=== PATIENT | male | born 1975 | race Caucasian/White ===

== ENCOUNTER 2017-01-20 14:56 | Inpatient (IN) | payer OTHER ==
[~2017-01-20] VITALS: Ht 180.3 cm; Wt 105.0 kg
[2017-01-20 15:03] VITALS: BP 131/74; PULSE 95; RESP 18; TEMP 98.8; O2SAT 97
[2017-01-20] MEDS ORDERED: ENOX100P SQ (15:08)
--- NOTE | 2017-01-20 15:14 | PD ---
HPI Chief Complaint: Pain: Acute or Chronic Time Seen by Provider: 15:04 Travel History International Travel<30 days: No Contact w/Intl Traveler<30days: No Traveled to known affect area: No History of Present Illness HPI Patient is a 41-year-old male who presents emergency department with complaint of DVT and PE. Patient had outpatient arthroscopic surgery of his right knee 8 days ago. Post procedure and states that he was having increasing swelling in the right leg. He has a history of DVT and was having pressure and a tingling feeling and states that this felt similar. He was seen at the [place] on Monday and had ultrasound that was negative. He was seen again today with a duplex ultrasound of the right lower extremity that per report shows "sonographic examination of the right lower extremity deep venous system from the distal common femoral vein to the level of the posterior tibial vein demonstrates lack of adequate compression and flow in the right posterior tibial vein. Also superficial thrombus phlebitis in the lesser saphenous vein. The rest the right lower extremity veins appear patent and compressible." Patient had also been complaining of some shortness of breath, but no chest pain. And therefore CT pulmonary angiogram was obtained today showing "multiple filling defects within segmental and subsegmental pulmonary arteries directed to the right upper lobe, right lower lobe, left lower lobe suggestive of PE. No evidence of deviation of the intraventricular septum". Patient was given a dose of 100 mg of Lovenox and transported here for further evaluation. 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 His previous DVT was felt to be likely due to immobilization and he never had a hyper coag workup to his knowledge. [facility] Past Medical History Deep Vein Thrombosis: Yes Past Surgical History Other Surgery: Yes Social History Alcohol Use: No Tobacco Use: No Allergies-Medications (Allergen,Severity, Reaction): Coded Allergies: Penicillin (Verified Allergy, Severe, 01/20/17) Reported Meds & Prescriptions Reported Meds & Active Scripts Active Reported Lovenox Inj (Enoxaparin Sodium) 100 Mg/Ml Syr 100 Mg SQ DAILY Review of Systems Except as stated in HPI: all other systems reviewed are Neg Physical Exam Narrative GENERAL: Well appearing male in no acute distress SKIN: Warm and dry. HEAD: Normocephalic. EYES: No scleral icterus. No injection or drainage. ENT: Mucous membranes pink and moist. NECK: Supple CARDIOVASCULAR: Regular rate and rhythm. No murmur appreciated. RESPIRATORY: No accessory muscle use. Clear to auscultation. Breath sounds equal bilaterally. GASTROINTESTINAL: Abdomen soft, non-tender, nondistended. MUSCULOSKELETAL: No obvious deformities. Right lower extremity with swelling to the thigh, no ecchymosis. Knee incisions are clean dry and intact. No palpable cords. Good distal sensation and pulses. NEUROLOGICAL: Awake and alert. Motor grossly within normal limits. Normal speech. PSYCHIATRIC: Appropriate mood and affect; insight and judgment normal. Data Data Last Documented VS Vital Signs Date Time Temp Pulse Resp B/P Pulse Ox O2 Delivery O2 Flow Rate FiO2 01/20/17 15:03 98.8 95 18 131/74 97 MDM Medical Decision Making Medical Screen Exam Complete: Yes Emergency Medical Condition: Yes Medical Record Reviewed: Yes Differential Diagnosis 41-year-old male here with complaint of right lower extremity swelling, shortness of breath 8 days post arthroscopic surgery further right knee. Differential includes DVT, PE, cellulitis, atelectasis. Narrative Course Patient has outpatient radiology studies with positive DVT to the groin and multiple segmental and subsegmental PE. He has already been given 100 mg Lovenox approximately 1 hour prior to arrival. Patient is stable and does not warrant heparin drip. CBC, BMP, coags, type and screen were ordered. Patient has already been anticoagulated and does not warrant further anticoagulation at this time. Patient will be admitted for further management of PE, DVT and hypercoagulable workup. Critical Care Narrative Aggregate critical care time was 35 minutes. Time to perform other separately billable procedures was not included in the critical care time. My time did not include minutes spent treating any other patients simultaneously or on activities that did not directly contribute to the patient's treatment. The services I provided to this patient were to treat and/or prevent clinically significant deterioration that could result in: Cardiopulmonary decompensation, , disability I provided critical care services requiring my management, as noted below: Chart data review, documentation time, medication orders and management, vital sign assessments/reviewing monitor data, ordering and reviewing lab tests, ordering and interpreting/reviewing x-rays and diagnostic studies, care of the patient and discussion of the patient with the admitting physicians. Diagnosis Primary Impression: Pulmonary embolism Qualified Code: I26.99 - Other acute pulmonary embolism without acute cor pulmonale Additional Impression: DVT (deep venous thrombosis) Qualified Code: I82.411 - Acute deep vein thrombosis (DVT) of femoral vein of right lower extremity Admitting Information Admitting Physician Requests: Admit Shagufta Martinez MD Jan 20, 2017 15:14
[2017-01-20] MEDS ORDERED: SODIUM CHLORIDE 0.9% FLUSH 5 ML FLUSH IVF PRN (15:15)
[2017-01-20 15:21] VITALS: O2SAT 97
[2017-01-20 15:32] LABS: AUTOMATED NEUTROPHIL # 7.9 TH/MM3 (1.8-7.7); BASOPHIL # 0.1 TH/MM3 (0-0.2); BASOPHIL % 0.7 % (0.0-2.0); EOSINOPHIL # 0.2 TH/MM3 (0-0.4); EOSINOPHIL % 1.7 % (0.0-4.0); HEMATOCRIT 43.5 % (39.0-51.0); HEMO FLAGS DIFF FINAL; LYMPH % 22.2 % (9.0-44.0); LYMPHOCYTE # 2.7 TH/MM3 (1.0-4.8); MEAN CELL VOLUME 82.6 FL (80.0-100.0); MEAN CORPUSCULAR HEMOGLOBIN 28.2 PG (27.0-34.0); MEAN CORPUSCULAR HGB CONC 34.1 % (32.0-36.0); MONO % 9.3 % (0.0-8.0); NEUT % 66.1 % (16.0-70.0); PLATELET COUNT 296 TH/MM3 (150-450); RED BLOOD COUNT 5.27 MIL/MM3 (4.50-5.90); RED CELL DISTRIBUTION WIDTH 13.2 % (11.6-17.2)
[2017-01-20 15:54] LABS: BICARBONATE 23.9 MEQ/L (21.0-32.0)
[2017-01-20 15:55] LABS: APTT (PATIENT) 27.3 SEC (24.3-30.1); PROTHROMBIN TIME - PATIENT 10.5 SEC (9.8-11.6)
[2017-01-20 17:14] VITALS: BP 131/74; PULSE 91; RESP 18; O2SAT 97
[2017-01-20] MEDS ORDERED: SODIUM CHLORIDE 0.9% FLUSH 5 ML FLUSH FLUSH PRN (17:30)
[2017-01-20] MEDS ORDERED: NALOXONE HCL 0.4 MG/ML AMP IV PRN (17:30)
[2017-01-20] MEDS ORDERED: ONDANSETRON HCL 4 MG/2 ML VIAL IVP PRN (18:00)
[2017-01-20] MEDS ORDERED: MAGNESIUM HYDROXIDE SUSP 30 ML CUP PO PRN (18:00)
[2017-01-20] MEDS ORDERED: ACETAMINOPHEN 325 MG TAB PO PRN (18:00)
--- NOTE | 2017-01-20 18:44 | HHI.HP ---
[facility] Admission Diagnosis PE, DVT Diagnoses: Chief Complaint: PE, DVT, tachycardia, SOB Travel History International Travel<30 Days: No Contact w/Intl Traveler <30 Da: No Traveled to Known Affected Are: No History of Present Illness Patient is a 41-year-old male with primary medical history of previous DVT who came into the hospital after being seen at the outpatient clinic in [place] secondary to results of his right leg Doppler ultrasound. Patient had an outpatient arthroscopic surgery of his right knee approximately a week ago. Postprocedure patient was able to walk without difficulty does not need any DME. Monday, patient started to notice right lower extremity swelling, he had difficulty getting up and putting weight on his right leg. He went to the clinic the following day and a Doppler ultrasound that they did in [place] showed negative for DVT. He was seen again today at the [place] and duplex ultrasound of the right lower extremity showed sonographic examination of the right lower extremity deep venous system from the distal common femoral vein to the level of the posterior tibial vein demonstrates lack of adequate compression and flow in the right posterior tibial vein. Also superficial thrombus phlebitis in the lesser saphenous vein. The rest the right lower extremity veins appear patent and compressible. Patient also stated that he has been having shortness of breath without any chest pain exacerbated with exertion especially when standing up and doing some activities, started Monday. CT pulmonary angiogram was done and showed multiple filling defects within segmental and subsegmental pulmonary arteries directed to the right upper lobe, right lower lobe, left lower lobe suggestive of PE. No evidence of deviation of the intraventricular septum. Patient was given a dose of 100 mg of Lovenox around 2:30 PM. He was also handed the prescription for both Lovenox and Coumadin by the [place]. In the ED, patient is tachycardic. Reports shortness of breath is improving just laying down and not exerting any effort. Denies chest pain, palpitations, headaches, dizziness. Denies fevers, chills, n/v/d. EKG showed sinus tachycardia Labs reviewed. WBC slightly elevated 12.0, otherwise remarkable. BMP unremarkable except for low EGFR 63, calcium 8.4 Review of Systems Except as stated in HPI: all other systems reviewed are Neg Past Family Social History Past Medical History DVT in 2015 patient was treated with Coumadin for 6 months Past Surgical History Stomach surgery during infancy Status post right knee arthroscopic surgery for torn meniscus Reported Medications None Allergies: Coded Allergies: Penicillin (Verified Allergy, Severe, 01/20/17) Active Ordered Medications Current Medications Medications (Trade) Dose Ordered Sig/Jurgen Route Start Time Stop Time Status Last Admin (NS Flush) 2 ml UNSCH PRN FLUSH 01/20/17 17:30 (NS Flush) 2 ml BID FLUSH 01/20/17 21:00 (Tylenol) 650 mg Q4H PRN PO 01/20/17 18:00 (Zofran Inj) 4 mg Q6H PRN IVP 01/20/17 18:00 (Milk Of Magnesia Liq) 30 ml Q12H PRN PO 01/20/17 18:00 (Narcan Inj) 0.4 mg UNSCH PRN IV 01/20/17 17:30 Family History No family history of DVT Social History Patient is a who lives with and children. Denies alcohol use Tobacco use 20 years ago, only on occasion Denies illicit drug use Physical Exam Vital Signs Vital Signs Date Time Temp Pulse Resp B/P Pulse Ox O2 Delivery O2 Flow Rate FiO2 01/20/17 17:14 91 18 131/74 97 Nasal Cannula 2 01/20/17 15:22 68 18 01/20/17 15:21 97 Nasal Cannula 2 01/20/17 15:03 98.8 95 18 131/74 97 Physical Exam GENERAL: This is a well-nourished, well-developed patient, in no apparent distress. SKIN: No rashes, ecchymoses or lesions. Warm and dry HEAD: Atraumatic. Normocephalic. No temporal or scalp tenderness. EYES: Pupils equal round and reactive. Extraocular motions intact. No scleral icterus. No injection or drainage. ENT: Nose without bleeding. Throat without erythema. Uvula midline. Airway patent. NECK: Trachea midline. No JVD or lymphadenopathy. Supple, nontender, no meningeal signs. CARDIOVASCULAR: Regular rate and rhythm without murmurs, gallops, or rubs. RESPIRATORY: No wheezes, rales, or rhonchi. Moderate aeration. GASTROINTESTINAL: Abdomen soft, non-tender, nondistended. Bowel sounds active 4. MUSCULOSKELETAL: Extremities without clubbing, cyanosis, RLE +2 edema, tender to palpate. NEUROLOGICAL: Awake and alert. Motor and sensory grossly within normal limits. Normal speech. Laboratory Laboratory Tests Test 01/20/17 15:14 White Blood Count 12.0 Red Blood Count 5.27 Hemoglobin 14.9 Hematocrit 43.5 Mean Corpuscular Volume 82.6 Mean Corpuscular Hemoglobin 28.2 Mean Corpuscular Hemoglobin 34.1 Concent Red Cell Distribution Width 13.2 Platelet Count 296 Mean Platelet Volume 8.3 Neutrophils (%) (Auto) 66.1 Lymphocytes (%) (Auto) 22.2 Monocytes (%) (Auto) 9.3 Eosinophils (%) (Auto) 1.7 Basophils (%) (Auto) 0.7 Neutrophils # (Auto) 7.9 Lymphocytes # (Auto) 2.7 Monocytes # (Auto) 1.1 Eosinophils # (Auto) 0.2 Basophils # (Auto) 0.1 CBC Comment DIFF FINAL Differential Comment Prothrombin Time 10.5 Prothromb Time International 1.0 Ratio Activated Partial 27.3 Thromboplast Time Sodium Level 141 Potassium Level 4.0 Chloride Level 107 Carbon Dioxide Level 23.9 Anion Gap 10 Blood Urea Nitrogen 15 Creatinine 1.28 Estimat Glomerular Filtration 63 Rate Random Glucose 83 Calcium Level 8.4 Blood Type O POSITIVE Antibody Screen NEGATIVE Result Diagram: 01/20/17 1514 01/20/17 1514 Assessment and Plan Problem List: (1) DVT (deep venous thrombosis) ICD Code: I82.409 Status: Acute (2) Pulmonary embolism ICD Code: I26.99 Status: Acute Assessment and Plan Patient is a 41-year-old male with primary medical history of previous DVT who came into the hospital after being seen at the outpatient clinic in [place] secondary to results of his right leg Doppler ultrasound. Patient had an outpatient arthroscopic surgery of his right knee approximately a week ago. Postprocedure patient was able to walk without difficulty does not need any DME. Monday, patient started to notice right lower extremity swelling, he had difficulty getting up and putting weight on his right leg. He went to the clinic the following day and a Doppler ultrasound that they did in [place] showed negative for DVT. He was seen again today at the [place] and duplex ultrasound of the right lower extremity showed lack of flow. Patient also stated that he has been having shortness of breath without any chest pain exacerbated with exertion especially when standing up and doing some activities, started Monday. CT angiogram showed PE. Newly diagnosed PE New DVT, with prior DVT history - Doppler ultrasound showed sonographic examination of the right lower extremity deep venous system from the distal common femoral vein to the level of the posterior tibial vein demonstrates lack of adequate compression and flow in the right posterior tibial vein. Also superficial thrombus phlebitis in the lesser saphenous vein. The rest the right lower extremity veins appear patent and compressible. - CT pulmonary angiogram was done and showed multiple filling defects within segmental and subsegmental pulmonary arteries directed to the right upper lobe, right lower lobe, left lower lobe suggestive of PE. No evidence of deviation of the intraventricular septum. - Patient was given a dose of 100 mg of Lovenox around 2:30 PM. He [facility] also [facility] - Continue Lovenox with 1.5 mg/kg/day dosing. 150mg/daily , bridge to Coumadin - Hematology consult and input appreciated. Seen by Dr. Ramírez. Recommends to do hypercoagulable studies about 2-3 months outpatient. - O2 nasal cannula as needed for SOB. Monitor respiratory status - Telemetry. - Follow up labs tomorrow - Lovenox injection teaching in anticipation for discharge. Written by Nissa Anderson, acting as scribe for Dr. Johnson on 01/20/17 at 18:22. All or portions of this note were transcribed by MARGRET Quiroz. I, Dr. Rocael Johnson personally performed the history, physical exam, and medical decision making; and confirmed the accuracy of the information in the transcribed note. Authenticated by Dr. Rocael Johnson on 01/20/17 at 19:35. Code Status Full code Discussed Condition With Patient, , Dr. Ramírez, ED attending Physician Certification 2 Midnight Certification Type: Admission for Inpatient Services Order for Inpatient Services The services are ordered in accordance with Medicare regulations or non- Medicare payer requirements, as applicable. In the case of services not specified as inpatient-only, they are appropriately provided as inpatient services in accordance with the 2-midnight benchmark. Estimated LOS (days): 2 days is the estimated time the patient will need to remain in the hospital, assuming treatment plan goals are met and no additional complications. Post-Hospital Plan: Home Problem Qualifiers (1) DVT (deep venous thrombosis): Qualified Code: I82.411 - Acute deep vein thrombosis (DVT) of femoral vein of right lower extremity (2) Pulmonary embolism: Qualified Code: I26.99 - Other acute pulmonary embolism without acute cor pulmonale Nissa Herron Jan 20, 2017 18:43 Rocael Johnson MD Jan 20, 2017 19:38
[2017-01-20] MEDS ORDERED: WARFARIN SOD 5 MG TAB PO ONE (19:00)
[2017-01-20 20:00] VITALS: BP 128/80; PULSE 95; RESP 20; TEMP 99.6; O2SAT 98
[2017-01-20] MEDS ORDERED: SODIUM CHLORIDE 0.9% FLUSH 5 ML FLUSH FLUSH SCH (21:00)
--- NOTE | 2017-01-20 22:23 | MB ---
cc: KRISTIN MICHEL MD DATE OF CONSULTATION 01/20/17 REASON FOR CONSULTATION Consult requested by Dr. Johnson for evaluation of a right lower extremity DVT with pulmonary embolism. HISTORY OF PRESENT ILLNESS This is a 41-year-old male. He has a history of right lower extremity DVT in 2015. 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 He was treated with six months of Coumadin through the [place]. The patient recently had a right knee arthroscopic surgery. This was about 7-10 days ago. The patient stated that after the surgery he was ambulating well. He did not have any problems. However, he started noticing swelling of the lower leg. He went to see his primary physician, Dr. Francois, at the [place]. A doppler ultrasound of his of the leg was done which showed DVT. Dr. Francois started him on Lovenox and gave him Coumadin. He also had a CT angiogram of the chest which showed pulmonary embolism. He was advised to come to the emergency room. In the emergency room, the patient has been evaluated by ER physician and admitted to Dr. Johnson. I have been asked to see the patient for further evaluation. The patient denies any shortness of breath, but he still has significant swelling and pain in the right lower extremity. He stated it was difficult to walk for him because of the swelling and pain. He had recent arthroscopic knee surgery which is not bothering him. REVIEW OF SYSTEMS The rest of the review of systems is negative. PAST MEDICAL HISTORY DVT of the right lower extremity in 2015 PAST SURGICAL HISTORY Recent right knee arthroscopic surgery. ALLERGIES PENICILLIN MEDICATIONS Prior to coming to the hospital none. FAMILY HISTORY No family history of thromboembolic disease. SOCIAL HISTORY The patient used to smoke cigarettes 20 years ago, does not drink alcohol. He is . PHYSICAL EXAMINATION GENERAL: A well-developed, well-nourished male in no apparent distress. VITAL SIGNS: Temperature 98.8, heart rate is 95, blood pressure 131/74. O2 saturation 97% cm on 2 liters nasal cannula. HEENT: PERRLA, EOMI, anicteric. No oral lesions are noted. NECK: Supple. There is no cervical, supraclavicular, axillary Lymphadenopathy noted. LUNGS: Clear. No wheezing, rhonchi or rales. HEART: Regular rate and rhythm. ABDOMEN: Soft, nontender. No hepatosplenomegaly. EXTREMITIES: Swelling in the right lower extremity noted. NEUROLOGIC: Awake, alert, oriented x3. SKIN: No significant lesions noted. ASSESSMENT 1. New onset Right lower extremity DVT with bilateral pulmonary embolism. 2. History of right lower extremity DVT in 2015. PLAN I have reviewed his available records and I have discussed with the patient and his regarding the DVT and pulmonary embolism. I have been asked to see the patient for hypercoagulable workup. I would not order any hypercoagulable panel at this time as it will not be reliable due to the acute event. Regardless, the management of the DVT and pulmonary embolism would not change whether we do the hypercoagulable now or later. Therefore, I have recommended that the hypercoagulable panel should be done in two to three months when the acute event resolves. We also discussed about the choice of the anticoagulation. According to the patient's , [facility] not [facility] or Eliquis. She stated that , when he had DVT of the right lower extremity two years ago he was prescribed Xarelto which the [facility] was unable to [facility] the prescription. I have advised her that she can check with the [facility] on Monday to see whether they will cover Eliquis or Xarelto as they may have change the policy. His primary physician has already given him Lovenox injections to do at home as well as Coumadin prescription. I think it is reasonable to start him on Coumadin tomorrow. I have discussed the case with Dr. Johnson. Thank you for asking my opinion. MD SHERINE Burgos/ /9:24 PM /10:00 PM CARLENE
[2017-01-20] MEDS ORDERED: ACETAMINOPHEN/HYDROcodone 325 MG/5 MG TAB PO PRN (23:00)
[2017-01-20] MEDS: ACETAMINOPHEN/HYDROcodone 325 MG/5 MG TAB PO PRN (23:01)
[2017-01-21] VITALS: BP 127/79; PULSE 97; RESP 20; TEMP 98.8; O2SAT 96
[2017-01-21 04:00] VITALS: BP 118/72; PULSE 83; RESP 20; TEMP 98; O2SAT 99
[2017-01-21 04:57] LABS: AUTOMATED NEUTROPHIL # 4.5 TH/MM3 (1.8-7.7); BASOPHIL # 0.1 TH/MM3 (0-0.2); BASOPHIL % 0.9 % (0.0-2.0); EOSINOPHIL # 0.3 TH/MM3 (0-0.4); HEMATOCRIT 43.2 % (39.0-51.0); HEMO FLAGS DIFF FINAL; LYMPH % 36.5 % (9.0-44.0); LYMPHOCYTE # 3.3 TH/MM3 (1.0-4.8); MEAN CELL VOLUME 82.8 FL (80.0-100.0); MEAN CORPUSCULAR HEMOGLOBIN 27.6 PG (27.0-34.0); MEAN CORPUSCULAR HGB CONC 33.3 % (32.0-36.0); MONO % 10.5 % (0.0-8.0); NEUT % 49.1 % (16.0-70.0); PLATELET COUNT 252 TH/MM3 (150-450); RED BLOOD COUNT 5.22 MIL/MM3 (4.50-5.90); RED CELL DISTRIBUTION WIDTH 13.3 % (11.6-17.2); WHITE BLOOD COUNT 9.1 TH/MM3 (4.0-11.0)
[2017-01-21 04:58] LABS: PROTHROMBIN TIME - PATIENT 10.5 SEC (9.8-11.6)
[2017-01-21 05:16] LABS: ANION GAP 7 MEQ/L (5-15); AST (GOT) 58 U/L (15-37); BICARBONATE 25.2 MEQ/L (21.0-32.0); BLOOD UREA NITROGEN 15 MG/DL (7-18); CHLORIDE 109 MEQ/L (98-107); GLOMERULAR FILTRATION RATE 70 ML/MIN (>89); POTASSIUM 3.9 MEQ/L (3.5-5.1); SODIUM (NA) 141 MEQ/L (136-145)
[2017-01-21 05:18] LABS: ALKALINE PHOSPHATASE 108 U/L (45-117); ALT (GPT) 117 U/L (12-78); TOTAL BILIRUBIN ADULT 0.5 MG/DL (0.2-1.0)
[2017-01-21 08:00] VITALS: BP 109/72; PULSE 79; RESP 17; TEMP 97.8; O2SAT 97
[2017-01-21] MEDS ORDERED: ENOXAPARIN SODIUM 100 MG/ML SYRINGE SQ SCH ×2 (09:00)
[2017-01-21] MEDS: ACETAMINOPHEN/HYDROcodone 325 MG/5 MG TAB PO PRN (09:37)
--- NOTE | 2017-01-21 10:35 | PD.ONC.PN ---
Subjective Subjective Remarks Afebrile overnight. Patient resting comfortably. He had some pain in RLE earlier, but it improved with pain medication. Objective Data Date Time Temp Pulse Resp B/P Pulse Ox O2 Delivery O2 Flow Rate FiO2 01/21/17 08:00 97.8 79 17 109/72 97 01/21/17 06:27 18 01/21/17 04:00 98.0 83 20 118/72 99 01/21/17 00:00 98.8 97 20 127/79 96 01/20/17 20:00 99.6 95 20 128/80 98 01/20/17 17:14 91 18 131/74 97 Nasal Cannula 2 01/20/17 15:22 68 18 01/20/17 15:21 97 Nasal Cannula 2 01/20/17 15:03 98.8 95 18 131/74 97 Result Diagram: 01/21/17 0418 01/21/17 0418 Laboratory Results Laboratory Tests Test 01/20/17 01/21/17 15:14 04:18 White Blood Count 12.0 TH/MM3 9.1 TH/MM3 Red Blood Count 5.27 MIL/MM3 5.22 MIL/MM3 Hemoglobin 14.9 GM/DL 14.4 GM/DL Hematocrit 43.5 % 43.2 % Mean Corpuscular Volume 82.6 FL 82.8 FL Mean Corpuscular Hemoglobin 28.2 PG 27.6 PG Mean Corpuscular Hemoglobin 34.1 % 33.3 % Concent Red Cell Distribution Width 13.2 % 13.3 % Platelet Count 296 TH/MM3 252 TH/MM3 Mean Platelet Volume 8.3 FL 8.4 FL Neutrophils (%) (Auto) 66.1 % 49.1 % Lymphocytes (%) (Auto) 22.2 % 36.5 % Monocytes (%) (Auto) 9.3 % 10.5 % Eosinophils (%) (Auto) 1.7 % 3.0 % Basophils (%) (Auto) 0.7 % 0.9 % Neutrophils # (Auto) 7.9 TH/MM3 4.5 TH/MM3 Lymphocytes # (Auto) 2.7 TH/MM3 3.3 TH/MM3 Monocytes # (Auto) 1.1 TH/MM3 1.0 TH/MM3 Eosinophils # (Auto) 0.2 TH/MM3 0.3 TH/MM3 Basophils # (Auto) 0.1 TH/MM3 0.1 TH/MM3 CBC Comment DIFF FINAL DIFF FINAL Differential Comment Prothrombin Time 10.5 SEC 10.5 SEC Prothromb Time International 1.0 RATIO 1.0 RATIO Ratio Activated Partial 27.3 SEC Thromboplast Time Sodium Level 141 MEQ/L 141 MEQ/L Potassium Level 4.0 MEQ/L 3.9 MEQ/L Chloride Level 107 MEQ/L 109 MEQ/L Carbon Dioxide Level 23.9 MEQ/L 25.2 MEQ/L Anion Gap 10 MEQ/L 7 MEQ/L Blood Urea Nitrogen 15 MG/DL 15 MG/DL Creatinine 1.28 MG/DL 1.16 MG/DL Estimat Glomerular Filtration 63 ML/MIN 70 ML/MIN Rate Random Glucose 83 MG/DL 95 MG/DL Calcium Level 8.4 MG/DL 8.3 MG/DL Blood Type O POSITIVE Antibody Screen NEGATIVE Total Bilirubin 0.5 MG/DL Aspartate Amino Transf 58 U/L (AST/SGOT) Alanine Aminotransferase 117 U/L (ALT/SGPT) Alkaline Phosphatase 108 U/L Total Protein 6.9 GM/DL Albumin 2.9 GM/DL Administered Medications Medications (Trade) Dose Ordered Sig/Jurgen Route PRN Reason Start Time Stop Time Status Last Admin Dose Admin IV Flush (NS Flush) 2 ml BID FLUSH 01/20/17 21:00 01/20/17 20:38 Enoxaparin Sodium (Lovenox Inj) 150 mg DAILY SQ 01/21/17 09:00 01/21/17 09:36 Acetaminophen/ Hydrocodone Bitart ([place] 5-325 Mg) 1 tab Q4H PRN PO PAIN 1-5 01/20/17 23:00 01/21/17 05:23 Acetaminophen/ Hydrocodone Bitart ([place] 5-325 Mg) 2 tab Q4H PRN PO PAIN 6-10 01/20/17 23:00 01/21/17 09:37 Objective Remarks GENERAL: Young man, sitting up in bed in [facility]. SKIN: Warm and dry. HEAD: Normocephalic. EYES: No injection or drainage. NECK: Supple, trachea midline. CARDIOVASCULAR: Regular rate and rhythm RESPIRATORY: Breath sounds equal bilaterally. No accessory muscle use. GASTROINTESTINAL: Abdomen soft, non-tender, nondistended. EXTREMITIES: No cyanosis. RLE with edema and tenderness to calf palpation. MUSCULOSKELETAL: Adequate muscle tone. NEUROLOGICAL: awake and alert, normal speech. Assessment/Plan Problem List: (1) Pulmonary embolism Status: Acute Plan: 01/21/17: continue Lovenox bridge to Coumadin. Patient will need to follow up with [facility] upon discharge --likely provoked by right knee arthroscopic surgery 7-10 days ago. Assessment 41y/o with RLE DVT + pulmonary embolism h/o DVT in 2014 Attending Statement pain is better continue lovenox and coumadin [facility] . available prn. Problem Qualifiers (1) Pulmonary embolism: Qualified Code: I26.99 - Other acute pulmonary embolism without acute cor pulmonale Livier Nieto Jan 21, 2017 10:35 Stephanie Ramírez MD Jan 21, 2017 18:44
[2017-01-21] MEDS ORDERED: ENOX100P SQ (11:15)
[2017-01-21] MEDS ORDERED: COUM5TAB PO (11:15)
[2017-01-21] MEDS ORDERED: PERC10TA27 PO (11:16)
--- NOTE | 2017-01-21 11:16 | HHI.DCPOC ---
Discharge Care Plan Diagnosis: (1) DVT (deep venous thrombosis) (2) Pulmonary embolism Goals to Promote Your Health * To prevent worsening of your condition and complications * To maintain your health at the optimal level Directions to Meet Your Goals Take your medications as prescribed Follow your dietary instruction Follow activity as directed Keep your appointments as scheduled Take your immunizations and boosters as scheduled If your symptoms worsen call your PCP, if no PCP go to Urgent Care Center or Emergency Room Smoking is Dangerous to Your Health. Avoid second hand smoke Call the 24-hour hour crisis hotline for domestic abuse at Rocael Johnson MD Jan 21, 2017 11:16
--- NOTE | 2017-01-21 11:17 | HHI.PR ---
Subjective Remarks Patient reports he is feeling okay today. Mild shortness of breath with activities but does not require any oxygen. Still have some pain when he put weight on the right leg. He is able to move his ankle better with the pain medication. I had a long discussion with the patient and his about follow- up and discharge planning. They feel comfortable with going home to follow-up at the [facility] on Monday. Objective Vitals Vital Signs Date Time Temp Pulse Resp B/P Pulse Ox O2 Delivery O2 Flow Rate FiO2 01/21/17 08:00 97.8 79 17 109/72 97 01/21/17 06:27 18 01/21/17 04:00 98.0 83 20 118/72 99 01/21/17 00:00 98.8 97 20 127/79 96 01/20/17 20:00 99.6 95 20 128/80 98 01/20/17 17:14 91 18 131/74 97 Nasal Cannula 2 01/20/17 15:22 68 18 01/20/17 15:21 97 Nasal Cannula 2 01/20/17 15:03 98.8 95 18 131/74 97 I/O 01/20/17 01/20/17 01/20/17 01/21/17 01/21/17 01/21/17 07:00 15:00 23:00 07:00 15:00 23:00 Intake Total 480 ml 0 ml Output Total 350 ml Balance 480 ml -350 ml Intake Oral 480 ml 0 ml Output Urine Total 350 ml Bladder Scan Volume Amount 292 ml # Voids 0 Result Diagram: 01/21/17 0418 01/21/17 0418 Imaging Outpatient imaging: Duplex ultrasound of the right lower extremity that per report shows "sonographic examination of the right lower extremity deep venous system from the distal common femoral vein to the level of the posterior tibial vein demonstrates lack of adequate compression and flow in the right posterior tibial vein. Also superficial thrombus phlebitis in the lesser saphenous vein. The rest the right lower extremity veins appear patent and compressible." CT pulmonary angiogram was obtained today showing "multiple filling defects within segmental and subsegmental pulmonary arteries directed to the right upper lobe, right lower lobe, left lower lobe suggestive of PE. Objective Remarks GENERAL: This is a well-nourished, well-developed patient, in no apparent distress. CARDIOVASCULAR: Normal rate and regular rhythm without murmurs, gallops, or rubs. RESPIRATORY: Good respiratory efforts. Breath sounds equal and clear to auscultation bilaterally. GASTROINTESTINAL: Abdomen soft, non-tender, non-distended. Normal active bowel sounds MUSCULOSKELETAL: Right lower extremity with 2+ edema up to the knees. Tender to palpation over the calf muscles. NEURO: Alert & Oriented x4 to person, place, time, situation. Moves all ext x4 PSYCH: Appropriate mood and affect. A/P Problem List: (1) DVT (deep venous thrombosis) ICD Code: I82.409 Status: Acute (2) Pulmonary embolism ICD Code: I26.99 Status: Acute Assessment and Plan 41-year-old male admitted with a DVT and pulmonary embolism after arthroscopic right knee surgery. The patient was evaluated by rubber cutter who advised continuing treatment with Lovenox bridging to Coumadin. The patient was already given a prescription for Lovenox and Coumadin from his [facility] primary care physician. He was monitored in the hospital. His respiratory status remained stable. Pain is improved with pain medications. He is discharged home on Lovenox and Coumadin. He was already given the medication from the [facility]. He will follow-up at the [facility] on Monday for INR recheck. I discussed the expected course of treatment at length with the patient and his . He also need a follow-up with hematology outpatient when indicated he would consider hypercoagulable workup in 2-3 months. Discharge home in good condition Diet: Heart healthy Activity: Regular as tolerated Meds: Per med rec Follow-up: With PCP at the [facility] on Monday and hematology in 2-3 months. Problem Qualifiers (1) DVT (deep venous thrombosis): Qualified Code: I82.411 - Acute deep vein thrombosis (DVT) of femoral vein of right lower extremity (2) Pulmonary embolism: Qualified Code: I26.99 - Other acute pulmonary embolism without acute cor pulmonale Rocael Johnson MD Jan 21, 2017 11:17
[2017-01-21 12:00] VITALS: BP 120/57; PULSE 70; RESP 16; TEMP 97.9; O2SAT 96
[2017-01-21] MEDS ORDERED: WARFARIN SOD 5 MG TAB PO SCH (16:00)
== END 2017-01-21 12:38 | disposition home or self-care (01) | DRG 176 ==
LOC: NEPE 14:56 → NEDA 16:39 → N07B 18:25
PROVIDERS: ADMIT Family Medicine; ATTEND Family Medicine
DX: I26.99 Other pulmonary embolism without acute cor pulmonale (principal); I82.411 Acute embolism and thrombosis of right femoral vein; I80.01 Phlebitis and thrombophlebitis of superficial vessels of right lower extremity; Z86.718 Personal history of other venous thrombosis and embolism; Z87.891 Personal history of nicotine dependence; R00.0 Tachycardia, unspecified
CPT/HCPCS: 80048; 80053; 85025; 85610; 85730; 86850; 86900; 86901; J1650

== ENCOUNTER 2017-03-03 10:40 | Emergency (ER) | payer OTHER ==
[~2017-03-03] VITALS: Ht 180.3 cm; Wt 105.0 kg
[~2017-03-03 10:40] MED LIST: COUM5TAB PO; ENOX100P SQ; PERC10TA27 PO
[2017-03-03 10:47] VITALS: BP 127/60; PULSE 70; RESP 16; TEMP 98.1; O2SAT 98
--- NOTE | 2017-03-03 11:00 | PD ---
HPI Chief Complaint: Chest Pain Time Seen by Provider: 10:47 Travel History International Travel<30 days: No Contact w/Intl Traveler<30days: No Traveled to known affect area: No History of Present Illness HPI The patient is a 41-year-old male who presents emergency department for evaluation of his INR. 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 The patient states he was diagnosed with a DVT the right lower extremity and a CT pulmonary angiogram indicated PE approximate one month ago. The patient was admitted to the hospital, placed on Lovenox, transitioned to Coumadin. The patient had a Coumadin level/INR drawn one week ago which is 2.1. The patient thought he had an appointment at the [facility] today, however, they stated they did not have an appointment, and sent him to the emergency department for evaluation of his INR. He does complain of mild shortness of breath, worse with exertion, worse after exercise/physical therapy on his right knee. Patient states his symptoms are 1/10. He denies any new swelling the right lower extremity. He denies any dizziness, lightheadedness, nausea, vomiting, or abdominal pain. PFSH Past Medical History Deep Vein Thrombosis: Yes Past Surgical History Other Surgery: Yes Social History Alcohol Use: Yes (OCC) Tobacco Use: No Substance Use: No Allergies-Medications (Allergen,Severity, Reaction): Coded Allergies: Penicillin (Verified Allergy, Severe, 01/20/17) Reported Meds & Prescriptions Reported Meds & Active Scripts Active Percocet (Oxycodone-Acetaminophen) 10-325 mg Tab 1 Tab PO Q4H PRN Coumadin (Warfarin) 5 Mg Tab 5 Mg PO DAILY@16 Review of Systems Except as stated in HPI: all other systems reviewed are Neg General / Constitutional: No: Fever HENT: No: Lightheadedness Cardiovascular: Positive: Chest Pain or Discomfort (1/10), Dyspnea on exertion Respiratory: Positive: Shortness of Breath Gastrointestinal: No: Nausea, Vomiting, Abdominal Pain Musculoskeletal: No: Edema Neurologic: No: Dizziness Physical Exam Narrative GENERAL: Awake, alert, pleasant 41-year-old male who appears his stated age is in no acute respiratory distress. SKIN: Focused skin assessment warm/dry. HEAD: Atraumatic. Normocephalic. EYES: Pupils equal and round. No scleral icterus. No injection or drainage. ENT: No nasal bleeding or discharge. Mucous membranes pink and moist. NECK: Trachea midline. No JVD. CARDIOVASCULAR: Regular rate and rhythm. No murmur appreciated. RESPIRATORY: No accessory muscle use. Clear to auscultation. Breath sounds equal bilaterally. GASTROINTESTINAL: Abdomen soft, non-tender, nondistended. No rebound tenderness. MUSCULOSKELETAL: No obvious deformities. No clubbing. No cyanosis. No edema. NEUROLOGICAL: Awake and alert. No obvious cranial nerve deficits. Motor grossly within normal limits. Normal speech. PSYCHIATRIC: Appropriate mood and affect; insight and judgment normal. Data Data Last Documented VS Vital Signs Date Time Temp Pulse Resp B/P Pulse Ox O2 Delivery O2 Flow Rate FiO2 03/03/17 10:47 98.1 70 16 127/60 98 Orders Complete Blood Count With Diff (03/03/17 10:54) Basic Metabolic Panel (Bmp) (03/03/17 10:54) Act Partial Throm Time (Ptt) (03/03/17 10:54) Prothrombin Time / Inr (Pt) (03/03/17 10:54) Chest, Single Ap (03/03/17 ) Electrocardiogram (03/03/17 ) Labs Laboratory Tests Test 03/03/17 03/03/17 11:00 12:18 White Blood Count 6.6 TH/MM3 Red Blood Count 5.37 MIL/MM3 Hemoglobin 14.5 GM/DL Hematocrit 43.3 % Mean Corpuscular Volume 80.7 FL Mean Corpuscular Hemoglobin 27.0 PG Mean Corpuscular Hemoglobin 33.5 % Concent Red Cell Distribution Width 13.4 % Platelet Count 243 TH/MM3 Mean Platelet Volume 8.6 FL Neutrophils (%) (Auto) 54.3 % Lymphocytes (%) (Auto) 33.5 % Monocytes (%) (Auto) 9.0 % Eosinophils (%) (Auto) 2.4 % Basophils (%) (Auto) 0.8 % Neutrophils # (Auto) 3.6 TH/MM3 Lymphocytes # (Auto) 2.2 TH/MM3 Monocytes # (Auto) 0.6 TH/MM3 Eosinophils # (Auto) 0.2 TH/MM3 Basophils # (Auto) 0.1 TH/MM3 CBC Comment DIFF FINAL Differential Comment Prothrombin Time 23.7 SEC Prothromb Time International 2.1 RATIO Ratio Activated Partial 36.5 SEC Thromboplast Time Sodium Level 140 MEQ/L Potassium Level 4.1 MEQ/L Chloride Level 107 MEQ/L Carbon Dioxide Level 26.1 MEQ/L Anion Gap 7 MEQ/L Blood Urea Nitrogen 11 MG/DL Creatinine 1.14 MG/DL Estimat Glomerular Filtration 72 ML/MIN Rate Random Glucose 90 MG/DL Calcium Level 8.2 MG/DL MDM Medical Decision Making Medical Screen Exam Complete: Yes Emergency Medical Condition: Yes Medical Record Reviewed: Yes Interpretation(s) EKG reveals normal sinus rhythm with a rate of 78. Laboratory Tests Test 03/03/17 03/03/17 11:00 12:18 White Blood Count 6.6 TH/MM3 Red Blood Count 5.37 MIL/MM3 Hemoglobin 14.5 GM/DL Hematocrit 43.3 % Mean Corpuscular Volume 80.7 FL Mean Corpuscular Hemoglobin 27.0 PG Mean Corpuscular Hemoglobin 33.5 % Concent Red Cell Distribution Width 13.4 % Platelet Count 243 TH/MM3 Mean Platelet Volume 8.6 FL Neutrophils (%) (Auto) 54.3 % Lymphocytes (%) (Auto) 33.5 % Monocytes (%) (Auto) 9.0 % Eosinophils (%) (Auto) 2.4 % Basophils (%) (Auto) 0.8 % Neutrophils # (Auto) 3.6 TH/MM3 Lymphocytes # (Auto) 2.2 TH/MM3 Monocytes # (Auto) 0.6 TH/MM3 Eosinophils # (Auto) 0.2 TH/MM3 Basophils # (Auto) 0.1 TH/MM3 CBC Comment DIFF FINAL Differential Comment Prothrombin Time 23.7 SEC Prothromb Time International 2.1 RATIO Ratio Activated Partial 36.5 SEC Thromboplast Time Sodium Level 140 MEQ/L Potassium Level 4.1 MEQ/L Chloride Level 107 MEQ/L Carbon Dioxide Level 26.1 MEQ/L Anion Gap 7 MEQ/L Blood Urea Nitrogen 11 MG/DL Creatinine 1.14 MG/DL Estimat Glomerular Filtration 72 ML/MIN Rate Random Glucose 90 MG/DL Calcium Level 8.2 MG/DL Last Impressions Chest X-Ray 03/03/17 0000 Signed Impressions: Service Date/Time: Friday, March 03, 2017 11:05 - CONCLUSION: No acute disease. Aurelio Duffy MD Differential Diagnosis Differential diagnosis includes subtherapeutic INR level, DVT, pulmonary embolism, congestive heart for her, pulmonary edema, pericarditis, arrhythmia. Narrative Course IV was established, labs are drawn and sent, and the patient was placed on cardiac telemetry monitoring and continuous pulse oximetry monitoring. EKG was ordered and interpreted. INR level was sent to lab. The patient had a heart rate in the 70s, O2 saturation was 98-99% on room air, no evidence of tachycardia or hypoxia. Chest x-rays unremarkable. INR is therapeutic at 2.1. Patient is stable for outpatient follow-up. Diagnosis Primary Impression: DVT (deep venous thrombosis) Qualified Code: I82.401 - Deep vein thrombosis (DVT) of right lower extremity , unspecified chronicity, unspecified vein Additional Impression: Encounter for monitoring coumadin therapy Patient Instructions: General Instructions Additional Instructions: Continue medications as previously directed. Follow-up with her primary physician at the [facility]. Return if symptoms worsen or progress. Please provide a patient a copy of his labs at discharge. Med/Other Pt SpecificInfo: No Change to Meds Disposition: 01 DISCHARGE HOME Condition: Stable Ethan Santillan MD Mar 03, 2017 11:00
[2017-03-03 11:11] LABS: AUTOMATED NEUTROPHIL # 3.6 TH/MM3 (1.8-7.7); BASOPHIL # 0.1 TH/MM3 (0-0.2); BASOPHIL % 0.8 % (0.0-2.0); EOSINOPHIL # 0.2 TH/MM3 (0-0.4); EOSINOPHIL % 2.4 % (0.0-4.0); HEMATOCRIT 43.3 % (39.0-51.0); HEMO FLAGS DIFF FINAL; LYMPH % 33.5 % (9.0-44.0); LYMPHOCYTE # 2.2 TH/MM3 (1.0-4.8); MEAN CELL VOLUME 80.7 FL (80.0-100.0); MEAN CORPUSCULAR HGB CONC 33.5 % (32.0-36.0); NEUT % 54.3 % (16.0-70.0); PLATELET COUNT 243 TH/MM3 (150-450); RED BLOOD COUNT 5.37 MIL/MM3 (4.50-5.90); RED CELL DISTRIBUTION WIDTH 13.4 % (11.6-17.2); WHITE BLOOD COUNT 6.6 TH/MM3 (4.0-11.0)
[2017-03-03 11:19] LABS: APTT (PATIENT) 36.5 SEC (24.3-30.1); INTERNATIONAL NORMALIZED RATIO 2.1 RATIO; PROTHROMBIN TIME - PATIENT 23.7 SEC (9.8-11.6)
--- NOTE | 2017-03-03 12:15 | RADRPT ---
EXAM DATE/TIME: 03/03/2017 11:05 [facility] COMPARISON: No previous studies available for comparison. INDICATIONS : Pain and shortness of breath. MEDICAL HISTORY : None. SURGICAL HISTORY : None. ENCOUNTER: Initial ACUITY: 4 - 6 days PAIN SCORE: 4/10 LOCATION: Chest, midline. FINDINGS: A single view of the chest demonstrates the lungs to be symmetrically aerated without evidence of mas s, infiltrate or effusion. The cardiomediastinal contours are unremarkable. Osseous structures are intact. CONCLUSION: No acute disease. Aurelio Duffy MD on March 03, 2017 at 12:13 Board Certified Radiologist. This report was verified electronically.
[2017-03-03 12:54] LABS: BICARBONATE 26.1 MEQ/L (21.0-32.0); POTASSIUM 4.1 MEQ/L (3.5-5.1)
[2017-03-03 13:43] VITALS: BP 116/59; PULSE 72; RESP 20; TEMP 98.2; O2SAT 99
--- NOTE | 2017-03-03 13:48 | EKG ---
Date Performed: 03/03/2017 Time Performed: 10:52:44 PTAGE: 41 years EKG: Sinus rhythm POSSIBLE RIGHT VENTRICULAR CONDUCTION DELAY BORDERLINE ECG NO PREVIOUS TRACING DOCTOR: Paramjit Davis Interpretating Date/Time 03/03/2017 13:46:48
== END 2017-03-03 13:45 | disposition home or self-care (01) ==
LOC: NEPC 10:40
DX: I82.401 Acute embolism and thrombosis of unspecified deep veins of right lower extremity (principal); R94.31 Abnormal electrocardiogram [ECG] [EKG]; Z51.81 Encounter for therapeutic drug level monitoring; Z79.01 Long term (current) use of anticoagulants; Z86.711 Personal history of pulmonary embolism
CPT/HCPCS: 71010; 80048; 85025; 85610; 85730; 93005; 99284

== ENCOUNTER 2017-04-24 11:48 | Emergency (ER) | payer OTHER ==
[~2017-04-24] VITALS: Ht 180.3 cm; Wt 106.5 kg
[~2017-04-24 11:48] MED LIST changes: -ENOX100P SQ
[2017-04-24 11:55] VITALS: BP 139/93; PULSE 91; RESP 20; TEMP 97.8; O2SAT 97
[2017-04-24 14:31] LABS: AUTOMATED NEUTROPHIL # 4.7 TH/MM3 (1.8-7.7); BASOPHIL # 0.1 TH/MM3 (0-0.2); BASOPHIL % 1.1 % (0.0-2.0); EOSINOPHIL # 0.3 TH/MM3 (0-0.4); HEMATOCRIT 44.2 % (39.0-51.0); HEMO FLAGS DIFF FINAL; LYMPH % 31.8 % (9.0-44.0); LYMPHOCYTE # 2.8 TH/MM3 (1.0-4.8); MEAN CELL VOLUME 81.8 FL (80.0-100.0); MEAN CORPUSCULAR HEMOGLOBIN 26.9 PG (27.0-34.0); MEAN CORPUSCULAR HGB CONC 32.9 % (32.0-36.0); MONO % 8.7 % (0.0-8.0); NEUT % 54.4 % (16.0-70.0); PLATELET COUNT 235 TH/MM3 (150-450); RED CELL DISTRIBUTION WIDTH 14.2 % (11.6-17.2); WHITE BLOOD COUNT 8.7 TH/MM3 (4.0-11.0)
[2017-04-24 14:39] LABS: APTT (PATIENT) 27.7 SEC (24.3-30.1); PROTHROMBIN TIME - PATIENT 11.3 SEC (9.8-11.6)
[2017-04-24 14:53] LABS: ALKALINE PHOSPHATASE 92 U/L (45-117); TOTAL BILIRUBIN ADULT 0.6 MG/DL (0.2-1.0)
[2017-04-24 14:57] LABS: ALT (GPT) 49 U/L (12-78); ANION GAP 7 MEQ/L (5-15); AST (GOT) 40 U/L (15-37); BLOOD UREA NITROGEN 16 MG/DL (7-18); CHLORIDE 107 MEQ/L (98-107); GLOMERULAR FILTRATION RATE 77 ML/MIN (>89); SODIUM (NA) 139 MEQ/L (136-145)
[2017-04-24 15:02] LABS: POTASSIUM 5.2 MEQ/L (3.5-5.1)
--- NOTE | 2017-04-24 15:16 | PD ---
HPI Chief Complaint: Bleeding Time Seen by Provider: 15:11 Travel History International Travel<30 days: Yes Contact w/Intl Traveler<30days: Yes Name of Country Traveled to: [place] Traveled to known affect area: Yes History of Present Illness HPI 42-year-old male that presents to the ED for evaluation of rectal bleeding. Per patient she's had 3 bowel movements with blood for about a week. Per patient not all the time but only sometimes. Per patient he recently came back from [place] after he was therefore a week. Per patient he does not have any pain. He denies any history of hemorrhoids. [facility] that showed [facility] and he was sent here for evaluation. He does take Coumadin for DVT. Denies any chest pain or shortness of breath. States compliance with his Coumadin. He denies any injury. He denies eating anything different. Nobody else is sick. No fevers chills or sweats. No diarrhea. Per patient the 3 times he's had the blood in the stool was significant and not just some drops. He did not have any pain when he had the bloody stool. 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 BACK) Diminished Hearing: Yes (BILATERALLY ) Deep Vein Thrombosis: Yes Medical other: Yes (PULMONARY EMBOLUS) Tetanus Vaccination: < 5 Years Influenza Vaccination: Yes ?: Not Past Surgical History Other Surgery: Yes Social History Alcohol Use: Yes (OCC) Tobacco Use: No Substance Use: No Allergies-Medications (Allergen,Severity, Reaction): Coded Allergies: Penicillin (Verified Allergy, Severe, unknown, 04/24/17) Reported Meds & Prescriptions Reported Meds & Active Scripts Active Cipro (Ciprofloxacin HCl) 500 Mg Tab 500 Mg PO BID 10 Days Coumadin (Warfarin) 5 Mg Tab 5 Mg PO DAILY@16 Review of Systems Except as stated in HPI: all other systems reviewed are Neg Physical Exam Narrative GENERAL: SKIN: Warm and dry. HEAD: Atraumatic. Normocephalic. EYES: Pupils equal and round. No scleral icterus. No injection or drainage. ENT: No nasal bleeding or discharge. Mucous membranes pink and moist. Tongue is midline. No uvula deviation. NECK: Trachea midline. No JVD. CARDIOVASCULAR: Regular rate and rhythm. No murmurs, S3, S4. RESPIRATORY: No accessory muscle use. Clear to auscultation. Breath sounds equal bilaterally. GASTROINTESTINAL: Abdomen soft, non-tender, nondistended. Hepatic and splenic margins not palpable. Rectal exam: Done with female nurse present. Patient does not have any hemorrhoids noted. No obvious internal hemorrhoids or masses noted. Hemoccult was positive. No clint blood noted. MUSCULOSKELETAL: Extremities without clubbing, cyanosis, or edema. No obvious deformities. Full range of motion of the upper and lower extremities bilaterally. 2+ pulses bilaterally. NEUROLOGICAL: Awake and alert. No obvious cranial nerve deficits. Motor grossly within normal limits. Five out of 5 muscle strength in the arms and legs. Normal speech. PSYCHIATRIC: Appropriate mood and affect; insight and judgment normal. Data Data Last Documented VS Vital Signs Date Time Temp Pulse Resp B/P Pulse Ox O2 Delivery O2 Flow Rate FiO2 04/24/17 17:43 88 20 132/92 97 Room Air 04/24/17 11:55 97.8 Orders Complete Blood Count With Diff (04/24/17 13:42) Comprehensive Metabolic Panel (04/24/17 13:42) Lipase (04/24/17 13:42) Lactic Acid (04/24/17 13:42) Prothrombin Time / Inr (Pt) (04/24/17 13:42) Act Partial Throm Time (Ptt) (04/24/17 13:42) Urinalysis - C+S If Indicated (04/24/17 13:42) Iv Access Insert/Monitor (04/24/17 13:42) Ct Abd/Pel W Iv Contrast(Rout) (04/24/17 ) Rotavirus Ag Detection (Stool) (04/24/17 14:00) C Diff Toxin Pcr (04/24/17 14:00) Giardia Antigen (Stool) (04/24/17 14:00) Stool Ova And Parasite Screen (04/24/17 14:00) Stool Wbc (Leukocytes) (04/24/17 14:00) Iohexol 350 Inj (Omnipaque 350 Inj) (04/24/17 16:36) Labs Laboratory Tests Test 04/24/17 04/24/17 04/24/17 14:21 15:00 15:20 White Blood Count 8.7 TH/MM3 Red Blood Count 5.40 MIL/MM3 Hemoglobin 14.5 GM/DL Hematocrit 44.2 % Mean Corpuscular Volume 81.8 FL Mean Corpuscular Hemoglobin 26.9 PG Mean Corpuscular Hemoglobin 32.9 % Concent Red Cell Distribution Width 14.2 % Platelet Count 235 TH/MM3 Mean Platelet Volume 8.1 FL Neutrophils (%) (Auto) 54.4 % Lymphocytes (%) (Auto) 31.8 % Monocytes (%) (Auto) 8.7 % Eosinophils (%) (Auto) 4.0 % Basophils (%) (Auto) 1.1 % Neutrophils # (Auto) 4.7 TH/MM3 Lymphocytes # (Auto) 2.8 TH/MM3 Monocytes # (Auto) 0.8 TH/MM3 Eosinophils # (Auto) 0.3 TH/MM3 Basophils # (Auto) 0.1 TH/MM3 CBC Comment DIFF FINAL Differential Comment Prothrombin Time 11.3 SEC Prothromb Time International 1.0 RATIO Ratio Activated Partial 27.7 SEC Thromboplast Time Sodium Level 139 MEQ/L Potassium Level 5.2 MEQ/L Chloride Level 107 MEQ/L Carbon Dioxide Level 25.0 MEQ/L Anion Gap 7 MEQ/L Blood Urea Nitrogen 16 MG/DL Creatinine 1.06 MG/DL Estimat Glomerular Filtration 77 ML/MIN Rate Random Glucose 84 MG/DL Lactic Acid Level 1.2 mmol/L Calcium Level 8.4 MG/DL Total Bilirubin 0.6 MG/DL Aspartate Amino Transf 40 U/L (AST/SGOT) Alanine Aminotransferase 49 U/L (ALT/SGPT) Alkaline Phosphatase 92 U/L Total Protein 7.6 GM/DL Albumin 3.4 GM/DL Lipase 97 U/L Urine Color YELLOW Urine Turbidity CLEAR Urine pH 5.0 Urine Specific [place] 1.023 Urine Protein NEG mg/dL Urine Glucose (UA) NEG mg/dL Urine Ketones NEG mg/dL Urine Occult Blood NEG Urine Nitrite NEG Urine Bilirubin NEG Urine Urobilinogen LESS THAN 2.0 MG/DL Urine Leukocyte Esterase NEG Urine WBC LESS THAN 1 /hpf Urine Mucus FEW /lpf Microscopic Urinalysis Comment CULT NOT INDICATED Stool C. difficile Toxin (PCR) NEGATIVE Stl C. difficile Toxin PRESUMPTIVE Epiderm 027 NEGATIVE MDM Medical Decision Making Medical Screen Exam Complete: Yes Emergency Medical Condition: Yes Medical Record Reviewed: Yes Interpretation(s) CBC & BMP Diagram 04/24/17 14:21 LFTS WNL UA WNL CT negative coags with INR of 1 Differential Diagnosis Coagulopathy versus rectal bleeding versus infection versus diverticulitis versus parasitic infection Narrative Course 42-year-old male that presents to the ED for evaluation of rectal bleeding. Patient was properly examined and was found to have signs and symptoms consistent appears to be rectal bleeding. Unclear etiology. I suspect likely infectious because of the patient's recent travel, otherwise patient has no other risk factors. Patient does take Coumadin unfortunately. I do recommend labs and imaging. Labs and imaging showed no sign of acute disease. Patient is not anemic. Patient does not have a colopathy and his INR is 1. He does tell me that he has not taken his Coumadin in about a week. He has no pain. Case was discussed in my attending who agrees with plan. She recommends discharge and follow-up outpatient for colonoscopy. Patient was told this and agrees with plan. Because of patient's recent travel again I am somewhat concerned for possible infectious etiology of the bloody stools. I will give patient a prescription for Cipro to cover for bacterial infection. He was able see was sample here which has been sent. This was discussed with my attending Dr. Goodwin who agrees to discharge. See ED if worsening symptoms. [facility] Point of Care Internal Pos. & Neg. Controls: Passed Fecal Specimen Occult Blood: Positive Diagnosis Primary Impression: GI bleed Qualified Code: K92.2 - Gastrointestinal hemorrhage, unspecified gastrointestinal hemorrhage type Patient Instructions: General Instructions Additional Instructions: [facility] See ED if worst. Drink plenty of fluids. Avoid NSAIDS. Med/Other Pt SpecificInfo: Prescription(s) given Scripts Ciprofloxacin (Cipro)500 Mg Run572 Mg PO BID 10 Days Ref 0 Prov:Radha Goodwin DO 04/24/17 Disposition: 01 DISCHARGE HOME Condition: Stable Gagandeep Iniguez Apr 24, 2017 15:16
[2017-04-24 15:32] LABS: BLOOD, URINE NEG (NEG); COMMENT (UR) CULT NOT INDICATED; CULTURE IF INDICATED CULT NOT INDICATED; GLUCOSE,URINE NEG (NEG); KETONE, URINE NEG (NEG); MUCUS URINE FEW /lpf (OCC); NITRITE,URINE NEG (NEG); URINE COLOR YELLOW (YELLW/STRAW)
[2017-04-24] MEDS ORDERED: IOHEXOL 350 MG/ML 10 ML VIAL (for RAD DIAG) IV ONE (16:36)
[2017-04-24 16:38] LABS: C. DIFF EPI 027 PRESUMPTIVE NEGATIVE (NEGATIVE); C. DIFF TOXIN PCR NEGATIVE (NEGATIVE)
--- NOTE | 2017-04-24 16:55 | RADRPT ---
EXAM DATE/TIME: 04/24/2017 16:22 [facility] COMPARISON: No previous studies available for comparison. INDICATIONS : Blood in stool for one week. IV CONTRAST: 95 cc Omnipaque 350 (iohexol) IV ORAL CONTRAST: No oral contrast ingested. RADIATION DOSE: 16.47 CTDIvol (mGy) MEDICAL HISTORY : Deep venous thrombosis. SURGICAL HISTORY : None. ENCOUNTER: Initial ACUITY: 1 week PAIN SCALE: 0/10 LOCATION: Bilateral abdomen. TECHNIQUE: Volumetric scanning of the abdomen and pelvis was performed. Using automated exposure control and adjustment of the mA and/or kV according to patient size, radiation dose was kept as low as reasonably achievable to obtain optimal diagnostic quality images. FINDINGS: Lung bases are clear. There is mild fatty replacement to the liver. Spleen, pancreas, adrenals and kidneys are unremarkable. There is symmetrical renal function. Cecum and ascending colon are unremarkable. Diverticula are present in the sigmoid colon. There is no free air or obstruction. CONCLUSION: Negative CT scan of the abdomen and pelvis for an acute process. I do not see an etio logy for the patient's abdominal pain. Yannick Kolb MD FACR on April 24, 2017 at 16:42 Board Certified Radiologist. This report was verified electronically.
[2017-04-24] MEDS ORDERED: CIPR-9 PO (17:08)
[2017-04-24 17:43] VITALS: BP 132/92; PULSE 88; RESP 20; O2SAT 97
== END 2017-04-24 17:45 | disposition home or self-care (01) ==
LOC: NEPC 11:48
DX: K62.5 Hemorrhage of anus and rectum (principal); Z86.711 Personal history of pulmonary embolism; Z79.01 Long term (current) use of anticoagulants; Z86.718 Personal history of other venous thrombosis and embolism
CPT/HCPCS: 74177; 80053; 81001; 83605; 83690; 85025; 85610; 85730; 87205; 87328; 87329; 87425; 87493; 99284; Q9967